=== PATIENT | male | born 1935 | race Caucasian/White ===

== ENCOUNTER 2019-05-27 16:59 | Inpatient (IN) ==
[2019-05-27] MEDS ORDERED: REGLAN IV ONE (17:22)
--- NOTE | 2019-05-27 19:06 | PROVIDER DOCUMENTATION ---
This chart was entered by Silvia Jessica Scribe, acting as scribe for Koko Roberson MD. HPI-Abdominal Pain/GI Problem - General Stated Complaint: N/V Time Seen by Provider: 05/27/19 17:13 Source: patient Allergies/Adverse Reactions: Patient Allergies Allergy/AdvReac Type Severity Reaction Status Date / Time levofloxacin [From Levaquin] Allergy Mild ITCHING Verified 05/27/19 17:46 Sulfa (Sulfonamide Allergy RASH Verified 05/27/19 17:46 Antibiotics) doxycycline AdvReac NAUSEA/VOMI Verified 05/27/19 17:46 TING Home Medications: Home Medication List Medication Instructions Recorded Confirmed Last Taken Type Carvedilol [Coreg] 12.5 mg PO HS 02/16/14 12/31/17 10/24/17 19:00 History Pancreatin/Lipase/Protease/Tara 1,400 mg PO DAILY 08/05/14 12/31/17 12/29/17 History [Pancreatin 8X 900 mg Tablet] Cinacalcet HCl [Sensipar] 30 mg PO DAILY 10/25/17 12/31/17 10/24/17 19:00 History Folic Acid/Vit Bcomp,C [Shavon-Ronald 0.8 mg PO DAILY 10/25/17 12/31/17 10/24/17 08:00 History Tablet] Amiodarone HCl 200 mg PO DAILY 12/30/17 12/31/17 12/29/17 History Apixaban [Eliquis] 2.5 mg PO BID 12/30/17 12/31/17 Unknown History Lactobacillus Rhamnosus GG 1 each PO DAILY 12/31/17 12/31/17 Unknown History [Culturelle] Lisinopril [Zestril] 10 mg PO DAILY 12/31/17 12/31/17 Unknown History Metronidazole [Flagyl] 500 mg PO BID #21 tab 01/03/18 Unknown Rx Omeprazole [Prilosec] 40 mg PO DAILY #30 capsule. 01/03/18 Unknown Rx Sucralfate [Carafate Liquid] 1 gm PO Q6HR #400 ml 01/03/18 Unknown Rx Diphenoxylate/Atropine [Lomotil] 1 ea PO 4XDAY PRN PRN #40 tab 08/03/18 Unknown Rx Metronidazole 500 mg PO TID #42 tab 08/03/18 Unknown Rx - History of Present Illness-ABD Nature of Presenting Problems: 83 yowm c/o n/v and abd pain starting today. pt sts has vx4 today w/yellow emesis. pt denies nausea in er. pt has hx of esrd and gastritis. pt dialyzes mwf. pt takes prilosec and zofran when gastritis flares up. BMs 2 x daily. denie fever, diarrhea. pt arrived via ems. Review of Systems - Adult - REVIEW OF SYSTEMS - ADULT Constitutional: reports: no symptoms reported. denies: chills, fever, fatique Eyes: reports: no symptoms reported Ears, Nose, Mouth & Throat: reports: no symptoms reported Cardiovascular: reports: no symptoms reported Respiratory: reports: no symptoms reported Gastrointestinal: reports: see HPI, abdominal pain, nausea, vomiting. denies: hematemesis, diarrhea, rectal bleeding Genitourinary: reports: no symptoms reported Musculoskeletal: reports: no symptoms reported Integumentary: reports: no symptoms reported Neurological: reports: no symptoms reported Psychiatric: reports: no symptoms reported Endocrine: reports: no symptoms reported Hematologic/Lymphatic: reports: no symptoms reported Allergic/Immunologic: reports: no symptoms reported All Other Systems: Reviewed and Negative Past History - Adult - PAST MEDICAL HISTORY-ADULT Review of Records: reports: Old Records Reviewed, Nursing Assessment Review, Medications Reviewed, Social history reviewed & non-contributory. Major Childhood Illnesses: reports: denies history Cardiovascular: reports: HTN, heart valve problem (aortic valve replacement) Respiratory: reports: denies history Gastrointestinal: reports: other (Diverticulitis) Obstetrical/Gynecological: reports: denies history Genitourinary: reports: dialysis (MWF), kidney disease (Alports Disease), other (BPH) Musculoskeletal: reports: denies history Neurological: reports: denies history Endocrine/Immune: reports: denies history Other Conditions: reports: denies history - PRIOR SURGERIES/PROCEDURES Surgical/Procedure History: reports: cholecystectomy, other (cataract, aortic valved replacement.) - IMMUNIZATION STATUS Childhood Immunizations: See Nurse Assessment Flu Vaccine: See Nurse Assessment - FAMILY HISTORY Family History: reviewed, not pertinent - SOCIAL HISTORY Smoking: other (former) Substance Use: none/never Physical Exam-General - PHYSICAL EXAM-ADULT Initial Vital Signs Reviewed: Yes - CONSTITUTIONAL General Appearance: appears well, alert, no apparent distress - EYES Eyes: PERRL/EOMI, pink conjunctivae - HEAD, EARS, NOSE, MOUTH & THROAT HENMT: normocephalic/atraumatic, moist mucous membranes, normal ENT inspection - NECK Neck: non-tender, full range of motion, supple, normal inspection - RESPIRATORY Respiratory: chest non-tender, lungs clear, normal breath sounds - CARDIOVASCULAR Cardiovascular: normal peripheral pulses, regular rate, rhythm - GASTROINTESTINAL (ABDOMEN) Abdominal Exam: normal bowel sounds, non tender, soft, no organomegaly, no puls atile mass. negative: abdominal bruit, abnormal bowel sounds, distended, tenderness - LYMPHATIC Lymphatic: no adenopathy - MUSCULOSKELETAL Back Exam: normal inspection, no CVA tenderness, no vertebral tenderness Extremity: normal range of motion, non-tender, normal inspection Peripheral Pulses: radial (R): 2+, radial (L): 2+ - SKIN Integumentary: normal color, normal turgor, warm/dry - NEUROLOGIC Neurologic: grossly normal, no motor/sensory deficits - PSYCHIATRIC Psych/Mental Status: normal mood/affect, normal thought content, normal thought process, oriented x 3 Progress - REASSESSMENT Reassessment #1 Time Reassessed: 18:23 Status: other (Dr. Wilkes assessed pt, palpated abd, and winced in pain on periumbilical area. Dr. wilkes will admit pt for obvs.) - EKG 1 Time of EKG reading by physician:: 17:12 EKG Read and Signed by:: Koko Roberson EKG Interpretation (*Must complete 3 of following elements*): Abnormal Rate: 98 Rhythm: SR w/ PAC QRS: other (prolonged qt) OH Interval: normal ST Wave: normal Departure - Departure Date of Disposition Decision: 05/27/19 Time of Disposition Decision: 18:15 DIAGNOSIS: Nausea and vomiting in adult Disposition: HOME 01 Certified Medical Emergency: Emergent Condition: Stable Referrals and Follow-Ups: Shawn Wilkes MD [Primary Care Provider] - - Critical Care Note This patient required my direct & personal management of CC.: No Attestation - Physician/ BARRIE Attestation Patient care was provided by Advanced Practice Provider:: No The physician spent face to face time with patient:: Yes Advanced Practice Provider documentation review:: Supervising physician onsite and consulted in the evaluation and care of this patient. The physician did have a face to face encounter with the patient. This chart was documented by the indicated scribe, (Silvia Jessica Scribe) and accurately reflects the services I performed and decisions made by me, Koko Roberson MD, as attested by the provider's signature.
[2019-05-27] MEDS ORDERED: CARAFATE LIQUID PO ONE (22:27)
[2019-05-27] MEDS: NEXIUM IV SCH (23:04)
[2019-05-27] MEDS: SODIUM CHLORIDE 0.9% INJ SCH (23:04)
--- NOTE | 2019-05-28 00:55 | HISTORY AND PHYSICAL ---
CHIEF COMPLAINT: Severe abdominal pain, nausea, vomiting, not eating since yesterday. 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 Started having upper abdominal discomfort, nausea, vomiting. Did not complete dialysis yesterday. He routinely goes to dialysis Wednesday, Wednesday, Wednesday. He came to the ER, along with his , with not eating. He is tender in the epigastric area. No signs of peritonitis. Patient was seen by Dr. Roberson. He had a similar presentation last year. This could be from reflux esophagitis. The patient was admitted cautiously for observation for not able to eat and acid reflux disease. If it fails to improve, will do further workup. Labs have been ordered, CBC, CMP, amylase. In the past, he had some ischemic changes in the bowel by Dr. Ford, and he has high risk, and will follow up while he is in the hospital. PAST MEDICAL HISTORY: 1. Alport syndrome. 2. Abdominal aneurysm, 4.2 cm. 3. Benign prostatic hypertrophy. 4. 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 5. COPD. 6. Stress-induced cardiomyopathy. 7. Hypertension. 8. Gout. 9. Hearing loss on the right side. 10. Hyperlipidemia. 11. Atrial fibrillation. PAST SURGICAL HISTORY: 1. Cholecystectomy. 2. Left arm AV graft. 3. Left colon resection due to diverticulitis. 4. Aortic valve replacement. 5. Hemorrhoidectomy. MEDICATIONS: Allopurinol 100 daily, Breo 1 puff daily, Coreg 12.5 p.o. b.i.d., clonidine 0.2 three times daily, folic acid 1 mg daily, gabapentin 100 daily, lisinopril 10 mg daily, Prilosec 40 daily, Reglan 5 mg 3 times daily, Renvela 800 mg 3 times daily, Sensipar 30 mg daily, Spiriva 1 capsule inhalation daily, Ventolin as needed. ALLERGIES: Reported to Bactrim and Levaquin. SOCIAL HISTORY: No smoking, no alcohol. 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 . No children. Living in [place]. FAMILY HISTORY: Father of brain cancer at 63. Mom of kidney failure at 77. HEALTH MAINTENANCE: Flu vaccine 2018. Pneumococcal vaccine 2015. Shingles 2013. REVIEW OF SYSTEMS: HEENT: No headache. No vision problem. No earache. No sore throat. Neck: No goiter. No lymphadenopathy. No bruit. Cardiopulmonary: No chest pain, shortness of breath, PND, orthopnea. Gastrointestinal: Upper abdominal pain, nausea, vomiting. No altered bowel habits. No bleeding per rectum. Genitourinary: No history of hesitancy, frequency, dysuria. Extremities: No swelling of legs. No joint pain. Neurologic: No focal symptoms or weakness. PHYSICAL EXAMINATION: VITAL SIGNS: Temperature is 98.9 degrees. Tachycardic. Blood pressure is running a little bit high. Height 5 feet 3 inches. Weight 125 pounds. HEENT: Atraumatic, normocephalic. Pupils equal, react to light. TMs are normal. Nose and throat within normal limits. NECK: Supple. No lymphadenopathy. CHEST: Bilateral air entry. HEART: Sounds are regular. ABDOMEN: Belly is soft. Tender in epigastric area. No signs of peritonitis. RECTAL: Deferred. EXTREMITIES: No peripheral edema, cyanosis. NEUROLOGIC: No obvious neurological deficits. INVESTIGATIONS: Labs are pending. ASSESSMENT AND PLAN: 1. An 83-year-old white gentleman admitted to the hospital with abdominal pain. Similar presentation last year, seen by Dr. Ford. In the past, a CT mesenteric angiogram was negative for ischemia. Plan of care: Follow up on the pending labs. We will use IV Nexium, IV Reglan, and sucralfate, and if no better consider further workup. 2. End-stage kidney disease, on dialysis. 3. Cardiomyopathy, stable. 4. Paroxysmal atrial fibrillation, stable. 5. Will slowly reconcile his home medications and follow up on the pending labs. Discussed with Dr. Roberson in the ER as well as the family in the emergency room. cc: Clem Armas MD
[2019-05-28] MEDS: CARAFATE LIQUID PO SCH ×4 (02:31→21:44)
[2019-05-28 06:41] LABS: HEMOGLOBIN 13.7 g/dL (14.0-18.0); MCH 29.8 PG (27-31); MCHC 31.9 g/dL (33-37); MCV 93.7 FL (81-99); MPV 10.2 FL (7.4-10.4); RBC 4.59 XMIL (4.7-6.1); RDW 15.5 % (11.5-14.5); WBC 21.82 X1000 (4.8-10.8)
[2019-05-28 07:10] LABS: AGAP 21; ALB/GLOB RATIO 1.1; ALBUMIN 3.9 g/dL (3.5-5.0); ALKALINE PHOSPHATASE 104 U/L (32-122); AMYLASE 106 U/L (20-200); BUN 42 mg/dL (8-22); CALCIUM 9.5 mg/dL (8.8-10.2); CHLORIDE 93 mmol/L (98-107); COSMO 291; CREATININE 8.1 mg/dL (0.7-1.2); ESTIMATED GFR 6; GLUCOSE 111 mg/dL (70-104); GOT 15 U/L (10-34); GPT < 5 U/L (10-44); POTASSIUM 5.1 mmol/L (3.5-5.1); SODIUM 140 mmol/L (136-145); TCO2 26 mmol/L (25-35); TOTAL BILIRUBIN 0.45 mg/dL (0.20-1.00); TOTAL PROTEIN 7.5 g/dL (6.3-8.3)
[2019-05-28 09:18] LABS: ALLEN TEST YES; BE 5.8 mmoll (-3.0-3.0); BLOOD TYPE ARTERIAL; HCO3-(ACT) 29.3 mmoll (20.0-26.0); METHB 1.3 % (0.0-1.5); O2HB 93.1 % (95.0-99.0); PCO2(98.6) 40 mmHg (35-45); PO2(98.6) 72 mmHg (60-100); SAMPLE BLOOD; SAO2 95.8 % (95.0-100.0); THB 13.7 g/dL (11.5-17.4); pH(98.6) 7.48 (7.35-7.45)
[2019-05-28 09:24] LABS: MODALITY ROOM AIR
--- NOTE | 2019-05-28 10:17 | NEPHROLOGY PROGRESS NOTE ---
DATE: 05/28/2019 See consult note job [id number] Dictated by TERESITA Cabezas for Rodrigue Mi MD cc: MD Clem Alegre MD [facility]
--- NOTE | 2019-05-28 10:38 | EKG Report ---
Test Performed on : 05/27/2019 5:06:28 PM Test Reason : cp Blood Pressure : / mmHG Vent. Rate : 098 BPM Atrial Rate : 098 BPM P-R Int : 146 ms QRS Dur : 096 ms QT Int : 384 ms P-R-T Axes : 119 070 085 degrees QTc Int : 490 ms Sinus rhythm. with premature atrial complexes. Prolonged QT Abnormal ECG When compared with ECG of 29-DEC-2017 17:33, premature ventricular complexes. are no longer present premature atrial complexes. are now present T wave inversion no longer evident in Inferior leads T wave inversion no longer evident in Lateral leads Unconfirmed Result
--- NOTE | 2019-05-28 10:54 | NEPHROLOGY CONSULTATION ---
DATE: 05/28/2019 REASON FOR ADMISSION: Abdominal pain, nausea, vomiting, anorexia. REASON FOR CONSULTATION: Assist with management, end stage renal disease . CONSULTING PHYSICIAN: Dr. Armas HISTORY OF PRESENT ILLNESS: This is an 83-year-old gentleman well known to our service for end- stage renal disease on hemodialysis on a Wednesday, Wednesday, Wednesday schedule. He was unable to complete his dialysis on Wednesday secondary to his symptoms. He came into the emergency room yesterday. He was worked up and then admitted for evaluation. We have been asked to see him, assist with his management and maintain his dialysis prescription. PAST MEDICAL HISTORY: 1. End-stage renal disease. Hemodialysis Wednesday, Wednesday, Wednesday. 2. Alport syndrome. 3. Abdominal aneurysm. 4. Benign prostatic hypertrophy. 5. Chronic obstructive pulmonary disease. 6. Stress-induced cardiomyopathy. 7. Hypertension. 8. Gout. 9. Hyperlipidemia. 10. Atrial fibrillation. SURGICAL HISTORY: 1. Cholecystectomy. 2. AV graft. 3. Left colon resection. 4. Aortic valve replacement. 5. Hemorrhoidectomy. ALLERGIES: Levaquin and sulfa, doxycycline. Please see chart for complete. HOME MEDICATIONS: Listed as allopurinol, Breo Ellipta, Coreg, clonidine, folic acid, gabapentin, lisinopril, Prilosec, Reglan, Renvela. Sensipar, Spiriva, Ventolin. FAMILY HISTORY: Cancer, acute renal failure. SOCIAL HISTORY: No current ETOH, tobacco or illicit drug use. He is retired. His is at the bedside. REVIEW OF SYSTEMS: Abdominal pain, nausea, vomiting, anorexia. PHYSICAL EXAMINATION: Vital Signs: Temperature 98.8 degrees, pulse 112 respiratory rate 18, blood pressure 143/78 intake and output are negative. General: This is an elderly gentleman resting in bed. He is awake and alert. He does not appear in acute distress. HEENT: Normocephalic, atraumatic. Conjunctivae are pink. His oral mucosa is moist. Neck: Supple without JVD. Cardiovascular: Regular rate and rhythm. Pulmonary: He is clear bilaterally. He is currently on room air. He has no increased work of breathing with equal excursion. Abdomen: Soft with some tenderness on palpation primarily epigastric. No distention. : He has minimal void with hemodialysis assist. Extremities: There is no clubbing, cyanosis, edema. He is moving all extremities and repositioning himself in bed. Integumentary: Skin is warm and dry. Neurologic: Grossly nonfocal. LAB DATA: WBC of 21.2 hemoglobin 13.7. Sodium 140, potassium 5.1, CO2 26, creatinine 8.1. ASSESSMENT AND PLAN: 1. End stage renal disease on dialysis is Wednesday, Wednesday, Wednesday. His next scheduled dialysis is Wednesday. He has no absolute intervention either from a laboratory standpoint or physical exam that would warrant emergent intervention today. We will plan for his routine prescription Wednesday. 2. Abdominal pain. Followed by primary. He does have a gastroenterology physician. 3. Electrolytes, acid-base balance anemia these are all stable. See above for plan. Dictated by TERESITA Cabezas for Rodrigue Mi MD cc: MD Clem Alegre MD
[2019-05-28] MEDS: SODIUM CHLORIDE 0.9% INJ SCH (11:24)
[2019-05-28] MEDS: NEXIUM IV SCH ×2 (11:24→21:44)
--- NOTE | 2019-05-28 14:45 | Diag Imaging Result Doc PS360 ---
EXAM: US ABDOMEN-COMPLETE HISTORY: abd pain TECHNIQUE: Abdominal ultrasound COMPARISON: 10/29/2017 FINDINGS: The pancreas is obscured. There is a distal abdominal aortic aneurysm measuring 4.2 cm in maximum diameter. No focal hepatic abnormality. The gallbladder has been removed. The common bile duct measures less than 3 mm. There is cortical thinning to the right kidney in the kidney is small measuring less than 8 cm in length. There are scattered cysts. The largest measures 4.2 cm. Normal spleen. No ascites. The left kidney is also small with cortical thinning and scattered cysts. The largest measures 2.5 cm. IMPRESSION: 1.Mild increase in the size of the distal abdominal aortic aneurysm 2.Medical renal disease 3.Cholecystectomy Electronically signed by Storm Delgadillo 05/28/2019 2:42 PM
[2019-05-28] MEDS: PHOSLO PO SCH ×2 (16:49→16:52)
[2019-05-28] MEDS: CORDARONE PO SCH (16:49)
[2019-05-28] MEDS: ZOFRAN IV PRN ×2 (17:30→21:44)
--- NOTE | 2019-05-28 17:44 | PROGRESS NOTE ---
DATE: 05/28/2019 SUBJECTIVE: The patient is still in a lot of belly pain. White cell count is high. I appreciated Nephrology consult. He is going to dialysis tomorrow. OBJECTIVE: Vital signs: Temperature is 98 degrees. He is slightly tachycardic. Vitals are stable. Blood pressure is 157/85. HEENT: Within normal limits. Chest: Bilateral air entry. Heart: Sounds are regular. Abdomen: Belly is soft, tender. No signs of peritonitis. LABS: CBC: White cell count 21, hematocrit 43, platelet 271,000. ABG, pH is 7.48, pCO2 40, PO2 72, bicarb 29, lactate 1.6. Sodium 140, potassium 5.1, chloride 93, BUN 42, creatinine 8.1, glucose 111. Liver function tests, amylase was normal. Ultrasound of the abdomen reported status post cholecystectomy, AAA 4.2 cm, medical renal disease. ASSESSMENT AND PLAN: 1. Upper abdominal pain. Seen by Dr. Regalado. Status post cholecystectomy and if no better consider CT of the abdomen and pelvis in the morning. AAA stable. 2. Continue IV PPI, Reglan, and ice chips for the time being. Reconcile home medicines for underlying medical problems. 3. Alport syndrome, end-stage kidney disease. Going for dialysis tomorrow. I will repeat the CBC, CMP in the morning. If no better, consider CT of the abdomen and pelvis. LEVEL OF DOCUMENTATION: Twenty-five minutes. cc: Clem Armas MD
[2019-05-28] MEDS ORDERED: PHOSLO PO SCH (19:30)
[2019-05-28] MEDS: COREG PO SCH (21:44)
[2019-05-28] MEDS: ELIQUIS PO SCH (21:44)
[2019-05-28] MEDS: LOTREL 5/20 MG PO SCH (21:44)
[2019-05-29] MEDS: CARAFATE LIQUID PO SCH ×4 (03:00→21:06)
[2019-05-29] MEDS: SYNTHROID PO SCH (06:04)
[2019-05-29] MEDS: ZOFRAN IV PRN ×3 (06:05→18:30)
[2019-05-29] MEDS ORDERED: TIGHT: 0.2 ML/HR FOR DIALYSIS MISC PRN (06:19)
[2019-05-29] MEDS ORDERED: NS 2,000 ML MISC PRN (06:19)
[2019-05-29] MEDS ORDERED: HEPARIN IV PRN (06:19)
[2019-05-29 08:02] LABS: HEMATOCRIT 44.3 % (42.0-52.0); HEMOGLOBIN 13.9 g/dL (14.0-18.0); MCH 29.1 PG (27-31); MCHC 31.4 g/dL (33-37); MCV 92.7 FL (81-99); MPV 10.9 FL (7.4-10.4); RBC 4.78 XMIL (4.7-6.1); RDW 15.6 % (11.5-14.5); WBC 18.75 X1000 (4.8-10.8)
[2019-05-29 08:45] LABS: POTASSIUM 6.3 mmol/L (3.5-5.1)
[2019-05-29 08:46] LABS: CREATININE 11.4 mg/dL (0.7-1.2)
[2019-05-29 08:47] LABS: CALCIUM 10.1 mg/dL (8.8-10.2)
[2019-05-29] MEDS ORDERED: CATAPRES PO SCH (09:00)
--- NOTE | 2019-05-29 09:47 | Diag Imaging Result Doc PS360 ---
EXAM: CT ABD/PELVIS W/IV CONT ONLY 05/29/2019 HISTORY: Abdominal pain TECHNIQUE: This exam was performed using automated exposure control, adjustment of mA or kV according to patient size, and/or use of iterative reconstruction technique. COMMENT: The current study is compared with the previous examination of 08/03/2018. The visualized portion of the chest is unchanged in appearance. There is a nodular opacity in the inferior lingula which is also associated with some pleural thickening. This was present at the time the previous study. There are atherosclerotic calcifications in the aorta, and there is an infrarenal abdominal aortic aneurysm which is fusiform in shape and measures a maximum of 4.4 cm in AP dimension. Compared to the previous examination this has increased from 4.2 cm. The left common iliac artery is also dilated to 2.4 cm, and this has not changed since the previous study. The spleen and adrenal glands are not enlarged. Both kidneys are atrophic and contain multiple cysts. There has been cholecystectomy. The common bile duct measures 8 mm in diameter which has diminished since the previous study at which time it measured over 18 mm. There is some prominence of the distal pancreatic duct. This was also the case previously. Otherwise the pancreas is unremarkable. There are multiple fluid filled small bowel loops in the left abdomen and there is some apparent extraluminal gas in the left upper quadrant around image 34 which may be due to a perforated diverticulum. There are multiple small bowel diverticula in this location. With the exception of the distal sigmoid and rectum the colon has apparently been resected. There are some enhancing mesenteric nodes in this region. There is a distended small bowel loop in the right mid abdomen and pelvis which contains fecalized contents. The distal end of this loop is apparently associated with a transition to more normal bowel caliber. This is at about the level of image 49 of the portal venous series. The distention of the small bowel loops and fecalized contents were not demonstrated on the previous study. Pelvis: There is no evidence of free pelvic fluid. There is some stool in the rectum. The prostate gland is enlarged measuring 5.5 cm in transverse dimension, and this has not changed significantly since the previous study. The urinary bladder is not distended. There is some spondylosis in the lumbar spine. No acute bony abnormalities are present. IMPRESSION: 1. Postsurgical changes of near-total colectomy. Diverticulosis of the small bowel with apparent diverticulitis in the left upper quadrant. 2. Partial small bowel obstruction in the right upper anterior abdomen. 3. Abdominal aortic aneurysm which has increased slightly in size since 08/03/2018. Electronically signed by Beau Kingston 05/29/2019 9:45 AM
[2019-05-29] MEDS: CULTURELLE PO SCH (14:43)
[2019-05-29] MEDS: ZOSYN 2.275 GM in NS 50 ML IV SCH (14:44)
[2019-05-29] MEDS: PHOSLO PO SCH ×3 (14:57→18:30)
[2019-05-29] MEDS: NEXIUM IV SCH ×2 (14:59→22:54)
[2019-05-29] MEDS: ELIQUIS PO SCH ×2 (14:59→21:06)
[2019-05-29] MEDS: CORDARONE PO SCH (15:00)
--- NOTE | 2019-05-29 15:12 | NEPHROLOGY PROGRESS NOTE ---
DATE: 05/29/2019 TIME SEEN: 0640 SUBJECTIVE: Mr. Liao is resting quietly in bed. He has just come back from the bathroom, unable to have a bowel movement in the last 48 hours. OBJECTIVE: Vital Signs: Temperature 98.4 degrees blood pressure 135/56, heart rate 84, respirations are 18, he is on room air, last recorded saturation is 97%. Intake and Output: He has had 600 in. He has had 0 recorded out. LABORATORY DATA: Sodium 140, potassium 6.3, chloride 93, CO2 of 24, BUN 73, creatinine 11.4, his glucose is 84, his anion gap is 23, his calcium is 10.1. White count 18.75, hemoglobin is 13.9, hematocrit is 44.3, platelet count 247,000. PHYSICAL EXAMINATION: General: This is an 83-year-old elderly male. He is resting quietly in bed. He appears chronically ill. No acute distress. Skin: Warm and dry. HEENT: Normocephalic, atraumatic. Conjunctiva is pale pink. He has ELLI. Mucous membranes are dry. Neck: Supple. Trachea midline. No evidence of JVD. Cardiovascular: He has regular rate and rhythm. Positive systolic murmur. Lungs: Clear to auscultation bilaterally. Equal excursion on room air. Abdomen: Soft, nontender. Positive bowel sounds, diminished, hypoactive. Extremities: Have no edema. No clubbing or cyanosis. The patient has a left upper arm fistula that is dry and intact. Neurological: Alert and oriented x3. ASSESSMENT AND PLAN: 1. End-stage renal disease. Patient is on dialysis Wednesday, Wednesday, Wednesday. Plan for scheduled dialysis today. We will place him on a 2 K bath. He is to dialyze for 3-1/2 hours. We will attempt to pull patient to his outpatient dry weight. 2. Electrolytes, acid-base balance with correction on dialysis. 3. Anemia. This is in target. 4. Abdominal pain., This is currently being followed by primary care and Gastroenterology. I would like to thank you for allowing us to follow with this patient. Dictated by TERESITA Wells for Rodrigue Mi MD Face to face encounter, data reviewed, discussed with Ashlee Stafford on 05/29/19. I agree with the above assessment and plan of care. cc: TERESITA Wells MD Jagan Reddy, MD MTDD
[2019-05-29] MEDS ORDERED: CORDARONE PO SCH (15:34)
[2019-05-29] MEDS: COREG PO SCH (21:06)
[2019-05-29] MEDS: LOTREL 5/20 MG PO SCH (21:06)
--- NOTE | 2019-05-29 21:34 | PROGRESS NOTE ---
DATE: 05/29/2019 SUBJECTIVE: The patient continues to have abdominal pain and nausea. She is on ice chips. She is going for CT and dialysis today. PHYSICAL EXAM: Afebrile, pulse is 100, blood pressure is 137/69, weight 121 pounds.HEENT: Within normal limits. Neck: Neck is supple. Chest: Bilateral air entry. Heart: Sounds are regular. Abdomen: Belly is soft. Tender in the epigastric area, upper abdominal area. No signs of guarding and rigidity. INVESTIGATIONS: White cell count 18.7, hematocrit 44, platelets 247,000. Sodium 140, potassium 6.3, BUN 73, creatinine 11.4. CT scan of the abdomen and pelvis showed AAA stable, postsurgical changes, near total colectomy, diverticulosis with apparent diverticulitis in the left upper quadrant, partial small bowel obstruction, abdominal aortic aneurysm 4.4 cm. ASSESSMENT AND PLAN: 1. Hyperkalemia, end-stage kidney disease due to Alport syndrome. Going for dialysis today. That will resolve the hyperkalemia. 2. Partial small bowel obstruction versus diverticulitis and tender. Started on IV Zosyn today. 3. Ice chips and repeat flat/upper of the abdomen with chest in the morning. If no better white cell count, consider surgical consult status controller. Appreciated consultants. Repeat the labs in the morning. Discussed with the patient at bedside this afternoon and wants to give some Nepro for nutrition. We will do nutrition through the dialysis. We will discuss with Dr. Mi. LEVEL OF DOCUMENTATION: 35 minutes. cc: Clem Armas MD
[2019-05-29] MEDS ORDERED: ZOSYN 2.25 GM in NS 50 ML IV SCH (23:00)
[2019-05-30] MEDS: ZOSYN 2.275 GM in NS 50 ML IV SCH (00:25)
[2019-05-30] MEDS: BENADRYL PO PRN ×2 (01:56→21:23)
[2019-05-30] MEDS: CARAFATE LIQUID PO SCH ×4 (03:06→20:04)
[2019-05-30] MEDS: SYNTHROID PO SCH (06:40)
[2019-05-30] MEDS ORDERED: SODIUM CHLORIDE 0.9% INJ SCH (06:45)
[2019-05-30 07:58] LABS: HEMATOCRIT 44.1 % (42.0-52.0); HEMOGLOBIN 13.9 g/dL (14.0-18.0); MCH 29.3 PG (27-31); MCHC 31.5 g/dL (33-37); MPV 10.5 FL (7.4-10.4); RBC 4.74 XMIL (4.7-6.1); RDW 15.9 % (11.5-14.5); WBC 21.51 X1000 (4.8-10.8)
[2019-05-30 08:23] LABS: CALCIUM 9.9 mg/dL (8.8-10.2); POTASSIUM 5.4 mmol/L (3.5-5.1)
--- NOTE | 2019-05-30 08:51 | Diag Imaging Result Doc PS360 ---
EXAM: ABDOMEN FLAT/UPRIGHT 05/30/2019 HISTORY: pain TECHNIQUE: Flat and upright abdomen COMMENT: There is dilatation of some small bowel loops and one loop contains fecalized material. The majority of the colon has been previously resected. Compared to 12/29/2017 the dilatation of the small bowel loops has worsened. IMPRESSION: Partial small bowel obstruction. Fecalized appearing contents seen in the midabdomen may be proximal to anastomotic stricture or adhesion. Electronically signed by Beau Kingston 05/30/2019 8:49 AM
[2019-05-30] MEDS: ZOFRAN IV PRN (09:04)
[2019-05-30] MEDS: ELIQUIS PO SCH (10:30)
[2019-05-30] MEDS: PROTONIX IV SCH ×2 (10:31→22:04)
[2019-05-30] MEDS: CULTURELLE PO SCH (10:31)
[2019-05-30] MEDS: CLINIMIX E 4.25%-5% SOLUTION 1,000 ML IV SCH (10:32)
[2019-05-30] MEDS: CORDARONE PO SCH (10:37)
[2019-05-30] MEDS: PHOSLO PO SCH ×3 (10:52→17:52)
--- NOTE | 2019-05-30 12:31 | NEPHROLOGY PROGRESS NOTE ---
DATE: 05/30/2019 TIME SEEN: 0645. SUBJECTIVE: Mr. Liao is resting quietly on the side of the bed. States that he has not eaten in 4 to 5 days. Last regular meal was late going into Wednesday. Still complains of some nausea, abdominal discomfort. OBJECTIVE: Patient's most recent vital signs, temperature 97.4 degrees, blood pressure 119/42, heart rate 87, respirations are 16. He is on room air. Last recorded saturation is 96%. He has had 230 in. He had 1 L removed on dialysis yesterday. Labs: Sodium is 141, potassium 5.4, chloride is 92, CO2 is 26, BUN 55, creatinine 6, glucose 108, anion gap 23, calcium is 9.9. White count 21.51, hemoglobin 13.9, hematocrit 44.1, with a platelet count of 292,000. Physical Examination: General: This is an 83-year-old, white male. He is currently resting quietly on the side of the bed. He reports that he is slightly hungry. Otherwise, no complaints of chest pain or increased work of breathing. Positive for abdominal discomfort. Skin is warm and dry. HEENT: Normocephalic, atraumatic. Conjunctivae are pale. He has ELLI. Mucous membranes are dry. Neck: Supple. Trachea midline. He has no evidence of JVD. Cardiovascular: Regular rate and rhythm. Soft systolic murmur present. Lungs: Clear to auscultation bilaterally. Equal excursion, on room air. Abdomen: Soft. Slight tenderness noted. Natural guarding on light palpation. Genitourinary: Not inspected. Minimal void with dialysis assist. Extremities: Have no edema, no clubbing or cyanosis. AV fistula to the left upper arm with a good palpable thrill. Neurological: Alert and oriented x3. ASSESSMENT AND PLAN: 1. Chronic kidney disease stage 5D. The patient is due for his routine dialysis treatment in the morning. No indications for intervention today. 2. Electrolytes and acid-base balance, stable with correction on dialysis. 3. Anemia. This is in target. 4. Abdominal pain. Followed by primary care. 5. Leukocytosis. The patient has a white cell count of 21.5. He is not on any prophylactic antibiotics. Noted to have diverticulitis. We will check blood cultures and urine cultures. I would like to thank you for allowing us to follow with this patient. Dictated by TERESITA Wells for Rodrigue Mi MD Face to face encounter, data reviewed, discussed with Ashlee Stafford on 05/30/19. I agree with the above assessment and plan of care. cc: TERESITA Wells MD Jagan Reddy, MD [facility]
[2019-05-30] MEDS ORDERED: BENADRYL IV ONE (14:02)
--- NOTE | 2019-05-30 14:17 | CONSULTATION ---
DATE OF CONSULTATION: 05/30/2019 Mr. Alfredo Spring is an 83-year-old black male who has end-stage renal disease and requires chronic hemodialysis on Wednesday, Wednesday, Wednesday. He is a patient Dr. JOSE ALEJANDRO Armas and was admitted with abdominal distention and left-sided abdominal pain. He also had some nausea. We were asked to evaluate him because of these symptoms and he has not improved with conservative treatment. PAST MEDICAL HISTORY: Hearing loss, end-stage renal disease, abdominal aortic aneurysm measuring 4.2 cm, benign prostate hypertrophy, COPD, cardiomyopathy, high blood pressure, gout, hyperlipidemia, atrial fibrillation. PAST SURGICAL HISTORY: Total abdominal colectomy per Dr. Onofre many years ago, also cholecystectomy, he has a left arm AV graft which is functional, he has had an aortic valve replacement, hemorrhoidectomy. MEDICATIONS: Allopurinol, Coreg, clonidine, gabapentin, lisinopril, Prilosec, Reglan, Renvela, Sensipar, Spiriva. ALLERGIES: Multiple antibiotics including Bactrim and Levaquin. SOCIAL HISTORY: Does not smoke. 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 He is . He had family at the bedside. He lives in [place]. FAMILY HISTORY: Father of brain cancer at 63. Mother of kidney failure 77. REVIEW OF SYSTEMS: A 14 point review of systems was performed and was essentially negative except for the history of present illness. PHYSICAL EXAM: On exam, Mr. Liao is an older male who has a left arm AV fistula. He is awake and cooperative. He is in no acute distress. HEENT: No jaundice. No oral lesions. No cervical or supraclavicular lymphadenopathy. Heart: Had an irregular rate. Lungs: Were clear. Abdomen: Is distended but not tightly so. It is tender on the left side. Has well-healed incision without evidence of hernia. No costovertebral tenderness. Rectal: Exam was not performed. He does have palpable femoral pulses. He had no significant peripheral edema and neurologically he had no focal deficits. IMPRESSION: I reviewed the CT scan of his abdomen and pelvis with our radiologist. He has fecalized material in his small bowel. He also has some inflammation of unclear etiology but possible diverticulitis of small bowel left abdomen. He appears to have a partial or small bowel obstruction. He has no NG tube. He has not been vomiting. His white blood cell count is 21, hematocrit is 44%. BUN and creatinine 55 and 6.0. PLAN: He dialyzes on Wednesday, Wednesday and Wednesday and is due dialysis tomorrow. Even despite his age and end-stage renal disease, he may require exploratory laparotomy for elevated white blood cell count and suggestion of small bowel obstruction. He is on Eliquis. He is not on antibiotics because of his allergies. I will speak with Dr. Armas about further care. Will stop his Eliquis. I will ask him about antibiotics. cc: MD Clem Capone MD
[2019-05-30] MEDS: COREG PO SCH (20:04)
[2019-05-30] MEDS: LOTREL 5/20 MG PO SCH (20:04)
[2019-05-30] MEDS ORDERED: FLAGYL 250 MG/NS 250 MG/50 ML IVPB IV ONE ×2 (21:13→22:00)
--- NOTE | 2019-05-30 21:34 | PROGRESS NOTE ---
DATE: 05/30/2019 SUBJECTIVE: Patient is not doing better. Family is very concerned. He is not eating well. His abdominal pain is no better, and he is very tender and minimal passing of gas. I did review the x- rays with Dr. Kingston. He has a partial small bowel obstruction with free luminal air gas in the small bowel diverticulum. REVIEW OF SYSTEMS: Abdominal pain, not eating well. OBJECTIVE: Vital Signs: Temperature is 97 degrees, pulse 90, blood pressure is stable. HEENT: Within normal limits. Neck: Supple. No lymphadenopathy. Chest: Bilateral air entry. Heart: Sounds are regular. Abdomen: Belly is soft, tender. No rebound tenderness. No signs of peritonitis. LABS: White cell count 21, hematocrit 44, platelets 292,000. Sodium 141, potassium 5.4, BUN 55, creatinine 6. Flat/upright of the abdomen reviewed, and partial small bowel obstruction, dilated small bowel loops. ASSESSMENT AND PLAN: 1. Partial small bowel obstruction with diverticulitis. Continue on intravenous Zosyn. Apparently, the nurses called me. He had some pain in the jaws after the Zosyn. He is allergic to sulfa drugs, Levaquin, and use the low dose of Flagyl and cephalosporins, cefepime. 2. Nutrition. We will use the intravenous Clinimix, and Dr. Mi is going to use some nutrition through the dialysis tomorrow. 3. Will check the labs in the morning. 4. Will hold the Eliquis. 5. If he does not get better, needs a surgical operation. Patient and family requesting Dr. Gonzalez. I spoke to him and will follow up. I appreciated Dr. Mi and Dr. Gonzalez consults. LEVEL OF DOCUMENTATION: 35 minutes. cc: Clem Armas MD
[2019-05-31] MEDS: CARAFATE LIQUID PO SCH ×4 (02:04→20:25)
[2019-05-31] MEDS ORDERED: HEPARIN IV PRN (06:22)
[2019-05-31] MEDS ORDERED: NS 2,000 ML MISC PRN (06:22)
[2019-05-31] MEDS ORDERED: TIGHT: 0.2 ML/HR FOR DIALYSIS MISC PRN (06:22)
[2019-05-31] MEDS: CLINIMIX E 4.25%-5% SOLUTION 1,000 ML IV SCH (06:35)
[2019-05-31] MEDS: SYNTHROID PO SCH (06:37)
--- NOTE | 2019-05-31 08:33 | NEPHROLOGY PROGRESS NOTE ---
DATE: 05/31/2019 TIME SEEN: 0650. SUBJECTIVE: Mr. Liao is resting quietly in bed. His is at his bedside. He states he feels terrible, continued chronic nausea with severe abdominal discomfort. LABORATORY DATA: Labs are still pending this a.m. Previous potassium 5.4. Previous hemoglobin 13.9. OBJECTIVE: Vital Signs: Temperature 98.2 degrees, blood pressure 119/47, heart rate 84, respirations 19. He is on room air. Last recorded saturation is 96%. He has had 550 in. He has had 0 recorded out, with need for dialysis. General: This is an 83-year-old white male. He appears chronically ill. Mild abdominal distress. Skin: Warm and dry. HEENT: Normocephalic, atraumatic. Conjunctivae pale. He has ELLI. Mucous membranes are dry. Neck: Supple. Trachea midline. No JVD. Cardiovascular: Regular rate and rhythm. He has a soft systolic murmur. Lungs: Clear to auscultation bilaterally. Equal excursion on room air. Abdomen: Tender to touch. The patient is guarding. He does have hypo bowel sounds present. Genitourinary: Not inspected. Minimal urine out with dialysis assist. Extremities: No edema. No clubbing or cyanosis. AV fistula to the left upper arm. Neurologic: Alert and oriented x3. ASSESSMENT AND PLAN: 1. Chronic kidney disease stage 5D. The patient is due for his routine dialysis treatment this morning. We will plan for dialysis early secondary to possible surgery for small-bowel obstruction per Dr. Gonzalez. Will place him on a 2-potassium bath. He is to dialyze for 3.5 hours. We will attempt to pull the patient to his outpatient dry weight. 2. Electrolytes and acid-base balance. These have been stable with correction on dialysis. 3. Anemia. This has been in target. 4. Abdominal pain. This is now followed by Dr. Gonzalez and primary care. It is felt that he has diverticulitis with a possible small-bowel obstruction. 5. Leukocytosis. The patient is now on intravenous Flagyl. White cell count had remained at 21.5 yesterday, still pending this morning. Blood cultures are still pending. I would like to thank you for allowing us to follow with this patient. Dictated by TERESITA Wells for Rodrigue Mi MD Face to face encounter, data reviewed, discussed with Ashlee Stafford on 05/31/19. I agree with the above assessment and plan of care. cc: TERESITA Wells MD Jagan Reddy, MD [facility]
[2019-05-31 08:41] LABS: HEMOGLOBIN 13.5 g/dL (14.0-18.0); MCH 29.5 PG (27-31); MCHC 32.1 g/dL (33-37); MCV 91.9 FL (81-99); MPV 10.4 FL (7.4-10.4); RBC 4.57 XMIL (4.7-6.1); RDW 15.8 % (11.5-14.5); WBC 19.61 X1000 (4.8-10.8)
[2019-05-31] MEDS: FLAGYL 250 MG/NS 250 MG/50 ML IVPB IV SCH ×2 (08:41→20:26)
[2019-05-31] MEDS ORDERED: FLAGYL 250 MG/NS 250 MG/50 ML IVPB IV SCH (09:00)
[2019-05-31] MEDS: CORDARONE PO SCH (09:02)
[2019-05-31] MEDS: PHOSLO PO SCH ×3 (09:06→18:12)
[2019-05-31] MEDS: CULTURELLE PO SCH (09:06)
[2019-05-31] MEDS: D50W 250 ML, AMINOSYN 15% 500 ML, LIPOSYN 20% 250 ML IV SCH ×3 (09:10)
[2019-05-31 09:22] LABS: CALCIUM 9.3 mg/dL (8.8-10.2); CREATININE 9.1 mg/dL (0.7-1.2)
[2019-05-31 09:54] LABS: POTASSIUM 6.3 mmol/L (3.5-5.1)
[2019-05-31] MEDS ORDERED: MAXIPIME 1 GM in NS 50 ML IV ONE (10:48)
[2019-05-31] MEDS: PROTONIX IV SCH ×2 (12:17→22:53)
--- NOTE | 2019-05-31 14:20 | Diag Imaging Result Doc PS360 ---
EXAM: FLAT/UPRIGHT ABD/1 VIEW CHEST 05/31/2019 HISTORY: abd pain TECHNIQUE: Flat and upright abdomen with PA chest COMMENT: There is stool in the right abdomen. There are markedly distended gas-filled small bowel loops in the mid and left upper quadrants. There is some gas in the stomach. This appearance has not changed appreciably since 05/30/2019. Given the lack of significant change the possibility of ileus should be considered. IMPRESSION: Partial small bowel obstruction and/or ileus. Electronically signed by Beau Kingston 05/31/2019 2:17 PM
--- NOTE | 2019-05-31 17:38 | Diag Imaging Result Doc PS360 ---
EXAM: CHEST-PORTABLE HISTORY: ng tube placement TECHNIQUE: Chest single view COMPARISON: 2:07 PM FINDINGS: Interval placement of a nasogastric tube. This is in good position overlying the esophagus and stomach. No other interval change. IMPRESSION: Nasogastric tube in good position Electronically signed by Storm Delgadillo 05/31/2019 5:35 PM
[2019-05-31] MEDS: COREG PO SCH ×2 (20:26→22:39)
[2019-05-31] MEDS: LOTREL 5/20 MG PO SCH ×2 (20:26→22:39)
--- NOTE | 2019-05-31 21:10 | PROGRESS NOTE ---
DATE: 05/31/2019 SUBJECTIVE: Patient is not doing very well. He has complaints of some allergic symptoms with antibiotics, and x-ray shows worsening of the small bowel obstruction. He is still diffusely tender. No signs of peritonitis, and he is going for dialysis today. I spoke to Dr. Gonzalez and he is planning tentatively to do surgery on Wednesday in light of Eliquis. He definitely needs another dialysis tomorrow. OBJECTIVE: Vital Signs: On exam, temperature is 98 degrees, slightly tachycardic. Hemodynamics were stable. On 2 L nasal cannula, 98%. NG tube was dropped after dialysis. Chest: Clear. Heart: Sounds are tachycardic. Abdomen: Belly is soft, less distended, passing minimal gas. INVESTIGATIONS: White cell count 19, hematocrit 42, platelets 269,000. Sodium 138, potassium 6.3, BUN 93, creatinine 9.1. ASSESSMENT AND PLAN: 1. Partial small bowel obstruction with diverticulitis. Previous total colectomy by Dr. Onofre. Conservative management. Nasogastric tube with low wall suction. Started on intravenous Flagyl, and Dr. Gonzalez gave some Maxipime, 1 dose. 2. Intravenous Clinimix. 3. Intravenous Protonix. 4. Continue to hold the Eliquis and hold the home medications. 5. We will repeat the labs in the morning as well as flat/upright of the abdomen. 6. Discussed the plan of care with family and will follow up. LEVEL OF DOCUMENTATION: 25 minutes. cc: Clem Armas MD
[2019-06-01] MEDS: CLINIMIX E 4.25%-5% SOLUTION 1,000 ML IV SCH ×2 (01:38→20:14)
[2019-06-01] MEDS: CARAFATE LIQUID PO SCH ×4 (06:15→20:16)
[2019-06-01] MEDS: SYNTHROID PO SCH (06:15)
[2019-06-01] MEDS ORDERED: HEPARIN IV PRN (07:30)
[2019-06-01] MEDS ORDERED: TIGHT: 0.2 ML/HR FOR DIALYSIS MISC PRN (07:30)
[2019-06-01] MEDS ORDERED: NS 2,000 ML MISC PRN (07:30)
[2019-06-01 08:29] LABS: BASO# 0.04 X1000 (0.0-0.2); BASO% 0.2 % (0.0-0.8); EOS# 0.07 X1000 (0.0-0.7); EOS% 0.3 % (0.0-10.0); HEMATOCRIT 40.1 % (42.0-52.0); HEMOGLOBIN 12.9 g/dL (14.0-18.0); IMM GRAN# 0.19 X1000 (0.0-0.04); IMM GRAN% 0.9 % (0.0-0.5); LYMPH# 1.43 X1000 (1.2-3.4); LYMPH% 6.8 % (20.5-51.1); MCH 29.6 PG (27-31); MCHC 32.2 g/dL (33-37); MONO% 7.6 % (1.7-9.3); MPV 10.7 FL (7.4-10.4); NEUT# 17.82 X1000 (1.4-6.5); NEUT% 84.2 % (42.2-75.2); PLT 231 X1000 (130-400); RBC 4.36 XMIL (4.7-6.1); RDW 15.6 % (11.5-14.5); WBC 21.15 X1000 (4.8-10.8)
--- NOTE | 2019-06-01 08:30 | Diag Imaging Result Doc PS360 ---
EXAM: ABDOMEN FLAT/UPRIGHT HISTORY: pain TECHNIQUE: Flat and upright, two views COMPARISON: 05/31/2019 FINDINGS: A nasogastric tube overlies the stomach. The multiple surgical clips scattered throughout the abdomen. No organomegaly. Prominent atherosclerosis. Air distended loops of bowel remain in the mid left abdomen. Air and stool is also found within the colon. IMPRESSION: Persistent ileus or partial obstruction. Electronically signed by Storm Delgadillo 06/01/2019 8:28 AM
[2019-06-01 08:54] LABS: EOS 1 % (1-10); LYMPHS 8 % (21-51); MONO 6 % (1-9); SEGS 85 % (42-75)
[2019-06-01 08:56] LABS: ALBUMIN 3.1 g/dL (3.5-5.0); CALCIUM 9.7 mg/dL (8.8-10.2); CREATININE 5.4 mg/dL (0.7-1.2); PHOSPHORUS 4.3 mg/dL (2.7-4.5); POTASSIUM 4.4 mmol/L (3.5-5.1)
[2019-06-01] MEDS: PHOSLO PO SCH ×3 (10:11→16:59)
[2019-06-01] MEDS: CULTURELLE PO SCH (10:12)
[2019-06-01] MEDS: CORDARONE PO SCH (10:12)
[2019-06-01] MEDS: D50W 250 ML, AMINOSYN 15% 500 ML, LIPOSYN 20% 250 ML IV SCH ×3 (10:13)
[2019-06-01] MEDS: ZOFRAN IV PRN ×2 (12:55→23:39)
--- NOTE | 2019-06-01 13:06 | NEPHROLOGY PROGRESS NOTE ---
DATE: 06/01/2019 TIME SEEN: 0650. SUBJECTIVE: Mr. Liao is resting quietly in bed. He is n.p.o. He has an NG tube to low intermittent suction with bile material to the tubing. States that he slept better last night. Abdominal pain diminished. OBJECTIVE: Vital Signs: Temperature 97.1 degrees, blood pressure 153/70, heart rate 97, respirations 17, he is on room air, last recorded saturation 100%. Intake and Output: 1450 in, 1450 out. He had 1 L removed on dialysis yesterday. General: This is an 83-year-old elderly male, who appears ill. No acute distress. Skin: Warm and dry. HEENT: Normocephalic, atraumatic. Conjunctivae pale. He has ELLI. Mucous membranes are dry. NG tube remains to left nostril with low intermittent suction and green drainage noted . Neck: Supple. Trachea midline. No JVD. Cardiovascular: Regular rate and rhythm. Soft systolic murmur. Lungs: Clear to auscultation bilaterally. Equal excursion on room air. Abdomen: Tender to touch to the right lower quadrant. Hypoactive bowel sounds are present. Genitourinary: Not inspected. Minimal void with dialysis assist. Extremities: Have no edema, no clubbing or cyanosis. AV fistula to the left upper arm. This is intact. Neurological: Alert and oriented x3. DIAGNOSTIC STUDIES: Sodium 137, potassium 4.4, chloride 91, CO2 of 26, BUN 71, creatinine 5.4, glucose is 105. The patient has an anion gap of 20 calcium 9.7, phosphorus 4.3, albumin 3.1. White count 21.15, hemoglobin 12.9, hematocrit 40, platelet count 231.. Blood cultures are negative. ASSESSMENT AND PLAN: 1. Chronic kidney disease, stage 5D. The patient is due for his routine dialysis treatment in the morning. Secondary to possibly having exploratory laparotomy tomorrow for small bowel obstruction, we will plan for dialysis today. We will place him on a 2 K bath. He is to dialyze for 3-1/2 hours. We will attempt to pull him to his outpatient dry weight. 2. Electrolytes, acid-base balance with correction on dialysis. 3. Anemia, this is in target. 4. Abdominal pain. Followed by Dr. Gonzalez and the primary care with a possible exploratory laparotomy in the a.m. 5. Leukocytosis. Blood cultures are negative. Patient is currently on IV Flagyl. I would like to thank you for allowing us to follow with this patient. Dictated by TERESITA Wells for Rodrigue Mi MD Face to face encounter, data reviewed, discussed with Ashlee Stafford on 06/01/19. I agree with the above assessment and plan of care. cc: TERESITA Wells MD Jagan Reddy, MD [facility]
[2019-06-01] MEDS: FLAGYL 250 MG/NS 250 MG/50 ML IVPB IV SCH ×3 (13:59→20:10)
[2019-06-01] MEDS: PROTONIX IV SCH ×2 (14:14→23:39)
[2019-06-01] MEDS ORDERED: LANOXIN IV ONE (14:59)
--- NOTE | 2019-06-01 15:09 | EKG Report ---
Test Performed on : 06/01/2019 2:56:09 PM Test Reason : ELEVATED HEART RATE Blood Pressure : / mmHG Vent. Rate : 152 BPM Atrial Rate : 092 BPM P-R Int : 000 ms QRS Dur : 098 ms QT Int : 324 ms P-R-T Axes : 000 077 230 degrees QTc Int : 515 ms Atrial fibrillation. with rapid ventricular response. with premature ventricular or aberrantly conduc segun complexes. ST & T wave abnormality, consider inferolateral ischemia Abnormal ECG When compared with ECG of 27-MAY-2019 17:06, (Unconfirmed) Significant changes have occurred Confirmed by Felisa Prince MD ([id number]) on 06/04/2019 9:32:13 PM
--- NOTE | 2019-06-01 15:35 | EKG Report ---
Test Performed on : 06/01/2019 3:13:19 PM Test Reason : Cat Call Blood Pressure : / mmHG Vent. Rate : 148 BPM Atrial Rate : 131 BPM P-R Int : 000 ms QRS Dur : 098 ms QT Int : 298 ms P-R-T Axes : 000 079 255 degrees QTc Int : 467 ms Atrial fibrillation. with rapid ventricular response. with premature ventricular or aberrantly conduc segun complexes. ST & T wave abnormality, consider inferolateral ischemia Abnormal ECG When compared with ECG of 01-JUN-2019 14:56, (Unconfirmed) No significant change was found Confirmed by Suresh FERNANDEZ, MDaren Casarez ([id number]) on 06/04/2019 9:32:18 PM
[2019-06-01] MEDS ORDERED: CORDARONE 360 MG/D5W 360 MG/200 ML IV.SOLN IV ONE (15:55)
[2019-06-01] MEDS ORDERED: CORDARONE 150 MG/D5W 150 MG/100 ML IV.SOLN IV ONE (15:55)
--- NOTE | 2019-06-01 16:24 | CARDIOLOGY CONSULTATION ---
DATE: 06/01/2019 REASON FOR CONSULTATION: Cardiology was consulted for atrial fibrillation. Patient had paroxysmal atrial fibrillation. HISTORY OF PRESENT ILLNESS: He is admitted with severe abdominal pain, nausea and vomiting. Has ileus and surgery is planned for tomorrow. Patient underwent dialysis today following which he went into atrial fibrillation with rapid ventricular rate. He was given a dose of digoxin. He denies chest pain, complains of weakness. He has an NG tube placed. When he came to the emergency room, he had abdominal discomfort and nausea and vomiting. REVIEW OF SYSTEM: General: A 14-point review of systems was done. GI System: As above. Cardiovascular System: As above. In addition, no chest pain. Genitourinary: There is no dysuria. Endocrine System: Stable. PAST MEDICAL HISTORY: 1. Alport syndrome. 2. Abdominal aorta aneurysm 4.2 cm. 3. Benign prostatic hypertrophy. 4. End-stage renal disease on dialysis. 5. COPD. 6. Stress-induced cardiomyopathy, Takotsubo syndrome. His last cardiac catheterization 2008 revealed normal coronary arteries. 7. Paroxysmal atrial fibrillation. 8. Hearing loss, right side. 9. Gout. 10. Other surgeries include cholecystectomy, left colon resection due to diverticulitis. 11. Aortic valve replacement, bioprosthetic. 12. Peripheral vascular disease, status post renal stent. 13. Anemia. 14. Diabetic gastroparesis. 15. The last cardiac catheterization : Left main was normal. Left anterior descending artery normal. Diagonal artery 30 to 40 percent ostial disease. RCA dominant normal. Circumflex normal. 16. Last ejection fraction was 45 to 50 percent. HOME MEDICATIONS: 1. Prilosec 40. 2. Renvela. 3. Sensipar. 4. Eliquis. 5. Lisinopril 10. 6. Clonidine as needed. 7. Spiriva. ALLERGIES: He is allergic to Bactrim and Levaquin. FAMILY HISTORY: Father of brain cancer at 63. Mother of kidney failure at 77. PHYSICAL EXAMINATION: Cardiovascular system: Blood pressure was 91/49. First and second heart sounds were heard. Soft systolic murmur noted. Respiratory system: Decreased air entry at the bases. Normal air entry. Abdomen: Soft, tenderness noted in epigastric region. Extremities: No edema. ASSESSMENT AND PLAN: Mr. Alfredo Liao is an 83-year-old gentleman with: 1. History of Alport syndrome. 2. Nonischemic cardiomyopathy. 3. Takotsubo syndrome in the past. 4. Paroxysmal atrial fibrillation. 5. Aortic valve replacement bioprosthetic in the past. 6. Anticoagulation therapy. 7. Renal artery stent placement in the past. HOSPITAL COURSE: Underwent dialysis today. He was admitted with nausea and vomiting and abdominal surgery is planned. He has an NG tube in place. Electrocardiogram revealed atrial fibrillation with rapid ventricular rate. Given this, we will put him on IV amiodarone. He was on Eliquis, which has been held when he was admitted. Surgery is planned in the morning. I am not going to anticoagulate him at the present time. Other medications have been held as he is n.p.o. He has had an aortic valve replacement, and the last echocardiogram was 2018 in March. The EF was 45% to 50%. Bioprosthetic valve was stable with a valve area calculated at 1 to 1.2 cm2 in keeping with bioprosthetic valve. We will get an echocardiogram in the morning. I have not made any other changes to his medications. Thank you for the consult. cc: MD Clem Milligan MD
[2019-06-01 16:58] LABS: CALCIUM 9.4 mg/dL (8.8-10.2); CREATININE 3.3 mg/dL (0.7-1.2); MAGNESIUM 1.6 mg/dL (1.5-2.7); POTASSIUM 3.4 mmol/L (3.5-5.1)
[2019-06-01] MEDS: LANOXIN IV SCH ×2 (20:11→23:27)
[2019-06-01] MEDS: COREG PO SCH (20:15)
[2019-06-01] MEDS: LOTREL 5/20 MG PO SCH (20:16)
--- NOTE | 2019-06-01 21:32 | PROGRESS NOTE ---
DATE: 06/01/2019 SUBJECTIVE: The patient had dialysis today. Small-bowel obstruction is not improving. He is not passing any gas and his belly is paper cone machine tender. After dialysis he went to atrial fibrillation. [facility] team was called in. I appreciate Dr. Schulz's consult. [facility] The patient was given digoxin, started on Cordarone drip. Blood pressure is about 90/60. OBJECTIVE: Temperature is 98 degrees blood pressure is 98/63, heart rate is irregular, on 4 L nasal cannula.Chest: Bilateral air entry. Irregular heart sounds. Belly is soft. Decreased tenderness. LABORATORY DATA: White cell count 21, hematocrit 40, platelets 231,000. Sodium 137, potassium 3.4, chloride 91, BUN 41, creatinine 3.3. Blood cultures are negative. ASSESSMENT AND PLAN: 1. Small-bowel obstruction, partial. Conservative management with nasogastric tube low-wall suctioning. Intravenous Flagyl. 2. Endstage kidney disease, on dialysis. 3. Atrial fibrillation. Started on intravenous Cordarone drip. The patient became unstable, transferred from the floor to the stepdown. Continue to monitor on dog control officer. Get an electrocardiogram and echocardiogram in the morning. Tentatively schedule for surgery tomorrow. Level of documentation 35 minutes. cc: Clem Armas MD
[2019-06-01] MEDS ORDERED: CORDARONE 540 MG in D5W 289.2 ML IV ONE (21:55)
[2019-06-02] MEDS: CARAFATE LIQUID PO SCH ×3 (02:02→17:10)
[2019-06-02] MEDS: ZOFRAN IV PRN (04:28)
[2019-06-02 05:54] LABS: BASO# 0.06 X1000 (0.0-0.2); BASO% 0.3 % (0.0-0.8); EOS# 0.11 X1000 (0.0-0.7); EOS% 0.5 % (0.0-10.0); HEMATOCRIT 43.1 % (42.0-52.0); IMM GRAN# 0.32 X1000 (0.0-0.04); IMM GRAN% 1.5 % (0.0-0.5); LYMPH% 6.8 % (20.5-51.1); MCH 29.5 PG (27-31); MCHC 32.5 g/dL (33-37); MCV 90.7 FL (81-99); MONO# 1.64 X1000 (0.11-0.59); MONO% 7.9 % (1.7-9.3); MPV 10.9 FL (7.4-10.4); NEUT# 17.21 X1000 (1.4-6.5); PLT 205 X1000 (130-400); RBC 4.75 XMIL (4.7-6.1); RDW 15.4 % (11.5-14.5); WBC 20.74 X1000 (4.8-10.8)
[2019-06-02 06:20] LABS: ALBUMIN 2.7 g/dL (3.5-5.0); CALCIUM 9.7 mg/dL (8.8-10.2); CREATININE 4.9 mg/dL (0.7-1.2); PHOSPHORUS 3.6 mg/dL (2.7-4.5); POTASSIUM 4.4 mmol/L (3.5-5.1)
[2019-06-02 06:50] LABS: LYMPHS 7 % (21-51); MONO 6 % (1-9); SEGS 87 % (42-75)
--- NOTE | 2019-06-02 07:12 | EKG Report ---
Test Performed on : 06/02/2019 06:25:12 AM Test Reason : afib Blood Pressure : / mmHG Vent. Rate : 116 BPM Atrial Rate : 116 BPM P-R Int : 272 ms QRS Dur : 098 ms QT Int : 306 ms P-R-T Axes : 082 086 265 degrees QTc Int : 425 ms Sinus tachycardia. with 1st degree AV block. Marked ST abnormality, possible inferior subendocardial injury Abnormal ECG When compared with ECG of 01-JUN-2019 15:13, (Unconfirmed) Sinus rhythm. has replaced Atrial fibrillation. Confirmed by Suresh FERNANDEZ, MDaren Casarez ([id number]) on 06/04/2019 9:32:46 PM
[2019-06-02] MEDS: PHOSLO PO SCH ×2 (08:06→17:09)
--- NOTE | 2019-06-02 09:10 | PROGRESS NOTE ---
DATE: 06/02/2019 SUBJECTIVE: Mr. Alfredo Liao is an 83-year-old white male with end-stage renal disease requiring chronic hemodialysis. He is a patient of Dr. JOSE ALEJANDRO Armas and Dr. Mi. He has had a history of abdominal surgery, including a colon resection per Dr. Onofre. He has been admitted with left-sided abdominal pain and ileus versus partial small bowel obstruction. The etiology is unknown, but he has not improved with conservative care. He has been dialyzed the last 2 days in a row in preparation for surgery, and we will have to perform an exploratory laparotomy with indicated procedures. I have reviewed his CT scan with our radiologist. I have discussed frankly with him and his family that this is high risk surgery for him because he is 83 years old on hemodialysis and he is very weak. He may require hospitalization in the ICU on the ventilator postoperatively. This morning he has an NG tube in place. He appears weak, but he is awake and cooperative. His abdomen is distended, but not tightly so, and it remains tender on the left side. He is allergic to a lot of IV antibiotics, but he has been receiving Maxipime. His white blood cell count continues to be elevated. cc: MD Clem Capone MD
--- NOTE | 2019-06-02 09:13 | Diag Imaging Result Doc PS360 ---
EXAM: CHEST-1 VIEW HISTORY: SOB TECHNIQUE: Chest single view COMPARISON: 05/31/2019 FINDINGS: The lungs are well expanded. The heart is not enlarged. The vessels are not distended. There are no infiltrates. No effusion identified. Nasogastric tube in good position. IMPRESSION: Negative exam. Electronically signed by Storm Delgadillo 06/02/2019 9:09 AM
--- NOTE | 2019-06-02 09:14 | Diag Imaging Result Doc PS360 ---
EXAM: ABDOMEN FLAT/UPRIGHT HISTORY: pain TECHNIQUE: Flat and upright, two views COMPARISON: 06/01/2019 FINDINGS: Nasogastric tube overlies the stomach. There are surgical clips in the upper mid abdomen. No free air beneath the diaphragm. No organomegaly. Prominent atherosclerosis. There continue to be air distended loops of bowel in the left lower abdomen. These are similar to the prior exam. IMPRESSION: Stable exam. Electronically signed by Storm Delgadillo 06/02/2019 9:10 AM
[2019-06-02] MEDS: CORDARONE PO SCH (09:22)
[2019-06-02] MEDS: CULTURELLE PO SCH (09:23)
--- NOTE | 2019-06-02 09:46 | ECHO REPORT ---
ORDER DATE: 06/02/2019 INTERPRETING PHYSICIAN: Dr. Jones Schulz ECHOCARDIOGRAPHIC MEASUREMENTS: 1. Interventricular septum: 1.4 cm. 2. Posterior wall: 0.8 cm. 3. Diastolic diameter: 4.9 cm. 4. Left atrium: 3.5 cm. 5. Aortic root: 3.5 cm. SUMMARY OF THE 2-DIMENSIONAL IMAGIN. Bioprosthetic Valve in aortic position is stable 2. Tricuspid valve was normal. 3. Pulmonic valve was normal. 4. Mitral valve was normal. 5. Mild mitral regurgitation. 6. Mild tricuspid regurgitation. Peak velocity across the tricuspid valve was less than 2 m/sec. 7. Normal left ventricular cavity size. Asymmetric left ventricular hypertrophy. Estimated ejection fraction of 50% to 55%. Atrial fibrillation was noted. 8. Peak velocity across the bioprosthetic aortic valve less than 2 m/sec. There is no aortic stenosis or regurgitation. 9. There is no pericardial effusion. cc: MD Jihan Milligan PA Jagan Reddy, MD MTDD
[2019-06-02] MEDS: FLAGYL 250 MG/NS 250 MG/50 ML IVPB IV SCH (10:15)
[2019-06-02] MEDS: SYNTHROID PO SCH (10:15)
[2019-06-02] MEDS: PROTONIX IV SCH (10:15)
[2019-06-02 11:24] VITALS: BP 139/66
[2019-06-02] MEDS ORDERED: DIPRIVAN 1% ONE (13:00)
[2019-06-02] MEDS ORDERED: XYLOCAINE-MPF 2% ONE (13:06)
[2019-06-02] MEDS ORDERED: ZEMURON ONE (13:06)
[2019-06-02] MEDS ORDERED: NEO-SYNEPHRINE ONE ×4 (13:06→16:03)
[2019-06-02] MEDS ORDERED: QUELICIN (DOSE) ONE (13:06)
[2019-06-02] MEDS ORDERED: EPHEDRINE ONE (15:54)
[2019-06-02] MEDS ORDERED: BREVIBLOC ONE (15:54)
[2019-06-02] MEDS ORDERED: PITRESSIN ONE ×2 (15:54→16:19)
[2019-06-02] MEDS ORDERED: CORDARONE 540 MG in D5W 289.2 ML IV ONE (17:00)
--- NOTE | 2019-06-02 19:44 | NEPHROLOGY CONSULTATION ---
DATE: 06/02/2019 SUBJECTIVE: He was moved to the step-down unit today because of new onset atrial fibrillation with rapid ventricular response. He is anticipating surgery today for abdominal infection. I discussed the case directly with Dr. Armas. Currently he is awake and alert. Continues to have abdominal pain and has weakness and episodic drowsiness. OBJECTIVE: Vital Signs: Blood pressure 140/68, heart rate 117, respirations 13, afebrile. General: As above, chronically ill. Skin: Warm and dry. Conjunctivae are pink. Neck: The neck veins are not appreciated. Heart: Irregular and tachycardic. Lungs: Equal. No crackles or wheezes. Abdomen: Soft, tender. Bowel sounds are diminished. Extremities: Have no edema. IMPRESSION: Chronic kidney disease 5D. He was dialyzed yesterday and labs and volume status are optimized for surgery if he is otherwise a candidate. Continue his IV nutrition and other current medications and antibiotics. We will follow with you. cc: MD Clem Alegre MD
--- NOTE | 2019-06-02 19:46 | OPERATIVE NOTE ---
PROCEDURE DATE: 06/02/2019 PREOPERATIVE DIAGNOSIS: Small-bowel obstruction. POSTOPERATIVE DIAGNOSIS: Diffuse small-bowel ischemia. PRINCIPLE PROCEDURE: Exploratory laparotomy with long segment small-bowel resection. SURGEON: Desiree Gonzalez MD. ANESTHESIA: General. ESTIMATED BLOOD LOSS: 250 mL. DRAINS: None. INDICATIONS: Mr. Alfredo Liao is an 83-year-old, white male, on hemodialysis, who has been hospitalized since 05/27/2019. Abdominal x-ray suggested dilated loops of small bowel, especially left side of abdomen. There were also inflammatory changes in this area. He was tender on the left side of his abdomen. His white blood cell count was elevated and it was felt that he could have a small-bowel obstruction or infection intra-abdominally causing ileus. Exploratory laparotomy was recommended. We knew that it was high risk. FINDINGS: He had dilated loops of small bowel, especially left side of abdomen, and they were ischemic and tightly adhesed to the retroperitoneum and the greater omentum. He had some small bowel that was viable right side of abdomen or distally that was not dilated. It was a difficult dissection to get the greater omentum off the small bowel and get it up off the retroperitoneum because of diffuse ischemia of the small bowel. Multiple enterotomies were made because of the necrotic bowel. We did work to free up all the adhesions where we could run the bowel. We had to remove a large segment of jejunum and part of the ileum that was ischemic with multiple enterotomies in it. We were able to perform a [id number] stapled anastomosis between the proximal jejunum and the distal ileum. However, the patient began becoming hypotensive and bradycardic, and it was felt that he might have had an MT during surgery. We closed the abdomen and sent him to the ICU in critical condition, and we feel that he is going to succumb to this stress of this operation. The family was told. DESCRIPTION OF PROCEDURE: The patient was brought to the operating room, placed supine, received general anesthesia, was intubated. We put him in stirrups. Sharma catheter tube was placed, despite his end-stage renal disease. He already had an NG tube in place. His abdomen was prepped and draped within the sterile field. We made a midline incision with a 10-blade scalpel and this incision was carried down through the subcutaneous tissue midline fascia using cautery and the abdomen was carefully entered. He had malignant adhesions between the greater omentum and the surface of the small bowel. He also had very tight adhesions between the small bowel and the retroperitoneum. He did have an aneurysm in the distal aorta. He still had his gallbladder. The liver appeared to be viable. We took time to take down these adhesions. It was difficult. We used the cautery and scissors, and we took down all the adhesions from the duodenum to the distal ileum. It was difficult to get the bowel off the retroperitoneum. Several enterotomies were made because of the difficult dissection and also the necrotic bowel was easily torn. These enterotomies were closed as we encountered them with running 2-0 or 3-0 silk stitches. Once we had entirely released the entire bowel from adhesions, it was clear that most of the small bowel was necrotic or ischemic. We used a REGGIE stapler to come across the jejunum where it was still viable proximally. We used another blue load REGGIE to come across the ileum where it appeared to be viable. I used the LigaSure to transect the small bowel mesentery where it was ischemic and a large segment of small bowel was removed from the abdomen. We did a [id number] stapled anastomosis between the jejunum and ileum, again using a blue load REGGIE stapler. The resulting defect was closed with a TA 30 stapler. At this point, his blood pressure was poor and he was starting to bradycardic down, and a code was briefly called in the operating room, which I stopped fairly quickly because of the patient's age at 83 and he is on end-stage renal disease, and I felt I had a lethal problem intra-abdominally. His midline fascia was closed with a running Maxon stitch and we closed the skin with a skin clip trench pipe layer helper. Plans are for him to go to the ICU intubated with a Sharma and NG tube in place. I told the patient's family immediately after the closure of the abdomen the situation and that I felt that he was not going to survive. We are going to get him to ICU #6, so that they can see him. cc: MD Clem Capone MD
--- NOTE | 2019-06-05 22:30 | DISCHARGE SUMMARY ---
ADMISSION DATE: 05/27/2019 DISCHARGE DATE: 06/02/2019 FINAL DIAGNOSIS: Cardiopulmonary arrest due to ischemic bowel. SECONDARY DIAGNOSES: 1. Alport syndrome. 2. Abdominal aortic aneurysm 4.2 cm. 3. Benign prostatic hypertrophy. 4. 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 5. Chronic obstructive pulmonary disease. 6. Stress-induced cardiomyopathy. 7. Hypertension. 8. Gout. 9. Deafness. 10. Hyperlipidemia. 11. Atrial fibrillation. 12. History of bioprosthetic aortic valve replacement. 13. Left arm arteriovenous graft. CONSULTATIONS: 1. Rodrigue Mi MD. 2. Desiree Gonzalez MD. 3. Jones Schulz MD PROCEDURES: 1. Inpatient dialysis. 2. Nasogastric tube with low wall suction. 3. Exploratory laparotomy with a bowel resection consistent with bowel wall ischemia. BRIEF HISTORY: Please see the H and P that was done on 05/27/2019. In brief, he is an 84-year- old white gentleman with above problems who was admitted due to abdominal pain, epigastric area. Initially it was thought to be gastroesophageal reflux disease in the past. Dr. Ford did EGD, questionable ischemia. He got better. He had a gallbladder surgery done. He fails to improve, not able to eat and subsequently he was more tender. CT scan of the abdomen and pelvis showed some small bowel partial obstructed with inflammatory changes in the small bowel. He had a prior colectomy done by Dr. Onofre. Gallbladder was taken out. He was started on antibiotics. He has some side effects. He was started on cefepime and Flagyl, intermittent dialysis. He failed to improve, not able to pass the gas. Surgical consult was obtained. The patient was on blood thinners with Eliquis, which was stopped 3 days before the anticipation of surgery. In the meantime, his course deteriorated with atrial fibrillation with a low blood pressure, subsequently given Lanoxin IV Cordarone drip and transferred to [facility]. He continues to have no significant improvement, and Dr. Gonzalez took him to the operating table. It was thought the patient has bowel wall ischemia and resected and during the surgery patient went into cardiac arrest and peacefully on 06/02/2019 at 5 p.m. The cause of the was due to cardiopulmonary arrest due to bowel wall ischemia with multiple comorbid conditions as above. Discussed with the family at bedside, and he donated the body for medical research. cc: MD Rodrigue Chavarria MD Lynn R. Buckner, MD Ashish K. Basu, MD MTDD
== END 2019-06-02 17:09 | disposition expired | DRG 329 ==
LOC: SUPCPDRO → ED 16:59 → 1N 21:08 → 3S 06-01 16:59 → ICU 06-02 13:44
PROVIDERS: ADMIT Internal Medicine; ATTEND Internal Medicine